=== PATIENT | female | born 1945 | race Hispanic/Latino ===

== ENCOUNTER 2017-04-15 06:09 | Day surgery (SDC) | payer MEDICARE, BC ==
[2017-04-15 07:00] VITALS: BMI 31.7
[2017-04-15 07:08] VITALS: TEMP 98
[2017-04-15] MEDS ORDERED: Bacitracin 500 Units/gm Oint Foilpak UD ONE (07:23)
[2017-04-15] MEDS ORDERED: Lidocaine 1% Inj (20ml) ONE (07:23)
[2017-04-15] MEDS ORDERED: Bupivacaine 0.5% Inj(30mL) ONE (07:23)
[2017-04-15] MEDS ORDERED: Lidocaine 2% Inj (20ml) ONE (07:24)
[2017-04-15 07:57] VITALS: BP 122/70; PULSE 70; RESP 12; O2SAT 100
--- NOTE | 2017-04-15 08:00 | PCM.SURG1 ---
Surgeon's Initial Post Op Note - Surgeon's Notes Surgeon: Dr. Lay Lezama Restorative Care Technician: Dr. Susie Fofana PGY-1 Type of Anesthesia: Local Anesthesia Administered By: none Pre-Operative Diagnosis: painful hardware left hallux Operative Findings: see operative report. I: 4cc 1:1 mixture of 0.5% marcaine plain + 2% lidocaine plaine\. M: 4-0 nylon suture Post-Operative Diagnosis: same Operation Performed: removal of painful 3.0 mm headless Vilex screw Specimen/Specimens Removed: none Estimated Blood Loss: EBL {In ML}: 1 Blood Products Given: N/A Drains Used: No Drains Date of Surgery/Procedure: 04/15/17 Time of Surgery/Procedure: 07:20
--- NOTE | 2017-04-15 11:51 | OP ---
PROCEDURE DATE: 04/15/2017 SURGEON: Dr. Marvin Lezama. WORDPRESS DEVELOPER: Dr. Justin, PGY-1. FOOTWEAR SALES ASSOCIATE: None ANESTHESIA: Local anesthesia. PREOPERATIVE DIAGNOSIS: Painful buried hardware of left hallux. POSTOPERATIVE DIAGNOSIS: Painful buried hardware of left hallux. PROCEDURE PERFORMED: Removal of painful hardware of left hallux. INDICATIONS: The patient is a 71-year-old female with the above diagnosis. The patient has exhausted all conservative treatment at this time and now requests surgical intervention. The patient signed the consent after careful explanation of risks, benefits and complications and alternatives for surgical procedures. No guarantees were given nor implied. NPO status was confirmed prior to taking patient to the OR. Tourniquet was not required for this procedure. PREPARATION: The patient was brought to the operating room and placed on the operating room table in the supine position. Next, a total of 4 mL of 1:1 mixture of 0.5% Marcaine plain and 2% lidocaine plain was given in a local block fashion to the left foot. Once local anesthesia was achieved, the left foot was then prepped and draped in the usual sterile manner and the procedure began. PROCEDURE: Attention was then directed to the distal medial aspect of the left hallux. Using a 15 blade, a linear fishmouth type incision was made from the distal medial aspect of the hallux nail border going plantar proximally. It measured approximately 1 cm in length. The incision was carried down to the level of bone, taking care to avoid any neurovascular structures. At this time , a hemostat was utilized to deepen the incision through the subcutaneous tissue and the head of the previously placed screw was identified. Using a screwdriver, the screw which was identified to be a 3.0 headless Vilex screw was removed from the hallux in its entirety and passed from the operative field. The wound was then copiously flushed with sterile saline. Next, using # 4-0 nylon, the wound edges were then reapproximated using a simple suture technique. The foot was then cleansed with saline and dried thoroughly. Adaptic was placed over the incision site, followed by 4 x 4 gauze, Patience and a Coban dressing. POSTOPERATIVE CONDITION: The patient tolerated the anesthesia and the procedure well and was escorted to the recovery room with vital signs stable and neurovascular status intact to her left foot. She is to keep the dressing clean, dry and intact and ambulate with a surgical shoe or an open toed sandal. The patient is advised to follow up with Dr. Marvin Lzeama next Wednesday at the office. AMAURI JUSTIN DPM Marvin Lezama DPM cc: [id number] TT: 04/15/2017 11:50:09 bria CALLES
== END 2017-04-15 08:05 | disposition home or self-care (01) ==
LOC: OPSURG 06:09
PROVIDERS: ATTEND Podiatrist
DX: T84.84XA Pain due to internal orthopedic prosthetic devices, implants and grafts, initial encounter (principal); I10 Essential (primary) hypertension; I49.9 Cardiac arrhythmia, unspecified; Z95.5 Presence of coronary angioplasty implant and graft